=== PATIENT | female | born 1970 | race Hispanic/Latino ===

== ENCOUNTER → 2020-02-22 | Outpatient (CLI) | payer BC | END | disposition home or self-care (01) | LOC: OIH 13:02 | PROVIDERS: ATTEND Physical Medicine & Rehabilitation | DX: M47.816 Spondylosis without myelopathy or radiculopathy, lumbar region (principal); M41.86 Other forms of scoliosis, lumbar region; M85.88 Other specified disorders of bone density and structure, other site; M54.5 Low back pain | CPT/HCPCS: 72110 ==

== ENCOUNTER → 2021-08-13 | Outpatient (CLI) | payer BC | END | disposition home or self-care (01) | LOC: RAH 15:22 | PROVIDERS: ATTEND Family Medicine | DX: R05.9 Cough, unspecified (principal) | CPT/HCPCS: 71046 ==

== ENCOUNTER → 2024-02-15 | Outpatient (CLI) | payer OTHER ==
--- NOTE | 2024-02-19 17:33 | HMCSR ---
APPROVED REPORT Bilateral Lower Extremity Venous Study for DVT., Venous Competence. Indications i87.1,i87.2 Vein Imaging CFV (R): Normal flow, augmentation and compression. No evidence of DVT. 10.0mm 772ms of reflux. SFJ (R): Normal flow, augmentation and compression. No evidence of DVT. FEM (R): Normal flow, augmentation and compression. No evidence of DVT. POP (R): Normal flow, augmentation and compression. No evidence of DVT. DFV (R): Normal flow, augmentation and compression. No evidence of DVT. PTV (R): Normal flow, augmentation and compression. No evidence of DVT. Peroneals (R): Normal flow, augmentation and compression. No evidence of DVT. CFV (L): Normal flow, augmentation and compression. No evidence of DVT. 11.9mm 1389ms of reflux. SFJ (L): Normal flow, augmentation and compression. No evidence of DVT. FEM (L): Normal flow, augmentation and compression. No evidence of DVT. POP (L): Normal flow, augmentation and compression. No evidence of DVT. DFV (L): Normal flow, augmentation and compression. No evidence of DVT. PTV (L): Normal flow, augmentation and compression. No evidence of DVT. Peroneals (L): Normal flow, augmentation and compression. No evidence of DVT. Technologist Impression Deep veins of the bilateral lower extremities appear patent and compressible without thrombus. Deep venous reflux noted in the LCFV. Superficial venous insufficieny in the RGSV, LGSV and LSSV. RGSV junction 6.0mm 800ms thigh 3.4mm 0.0ms knee 2.8mm 0.0ms calf 1.9mm 3322ms RSSV prox 1.3mm 372ms mid 1.7mm 289ms LGSV junction 5.6mm 567ms thigh [id number] knee 1.9mm0.0ms calf 2.5mm 528ms LSSV prox 3.6mm 4208ms mid 2.2mm 0.0ms Conclusion Deep venous reflux noted in the LCFV. Superficial venous insufficieny in the RGSV, LGSV and LSSV. No DVT Conclusion Deep venous reflux noted in the LCFV. Superficial venous insufficieny in the RGSV, LGSV and LSSV. No DVT
== END | disposition home or self-care (01) ==
LOC: SHCH 11:10
PROVIDERS: ATTEND Internal Medicine Cardiovascular Disease
DX: I87.2 Venous insufficiency (chronic) (peripheral) (principal); I87.1 Compression of vein
CPT/HCPCS: 93970